=== PATIENT | female | born 1965 | race Caucasian/White ===

== ENCOUNTER 2020-08-24 08:20 | Outpatient (CLI) | payer BC ==
--- NOTE | 2020-08-24 08:41 | RAD ---
3 views of the cervical spine: 08/24/2020 COMPARISON: None HISTORY: Right arm numbness, radiculopathy FINDINGS: There is disc space narrowing with degenerative endplate change at C5-6 and to a lesser deg ree, C4-5. There is anterolisthesis at C6-7 measuring 3 mm on the neutral imaging. This anterolisthesis measures approximately 4 mm on flexion imaging and approximately 3 mm on extension im aging. No prevertebral soft tissue swelling. At C6-7 there is significant bilateral facet hypertrophy. IMPRESSION: Cervical spine degenerative changes as detailed above.
== END 2020-08-24 08:21 | disposition home or self-care (01) ==
LOC: TBSIIMAG 08:20
PROVIDERS: ATTEND Neurological Surgery
DX: M54.16 Radiculopathy, lumbar region (principal); M47.812 Spondylosis without myelopathy or radiculopathy, cervical region
CPT/HCPCS: 72040